=== PATIENT | male | born 1960 | race Caucasian/White ===

== ENCOUNTER → 2016-07-06 | Outpatient (CLI) | payer BC ==
[2014-08-20 14:58] VITALS: BP 110/85
[2016-07-06 06:53] LABS: BILIRUBIN,URINE NEGATIVE (NEGATIVE); BLOOD/HEMOGLOBIN,URINE NEGATIVE (NEGATIVE); GLUCOSE, URINE NEGATIVE (NEGATIVE); KETONES,URINE NEGATIVE (NEGATIVE); LEUKOCYTE ESTERASE ,URINE NEGATIVE (NEGATIVE); NITRITES,URINE NEGATIVE (NEGATIVE); PROTEIN,URINE 1+ (NEGATIVE); UROBILINOGEN,URINE NORMAL (NORMAL)
[2016-07-06 07:01] LABS: APPEARANCE,URINE CLEAR (CLEAR); BACTERIA,URINE NEGATIVE /HPF (NEGATIVE); COLOR,URINE YELLOW (YELLOW); MUCUS,URINE FEW /HPF (NEGATIVE); RBC,URINE 0-1 /HPF (NEGATIVE); SQUAMOUS EPITHELIAL CELL,UR RARE /HPF (NEGATIVE)
[2016-07-06 07:02] LABS: BASOPHILS % (AUTO) 0.9 % (0.2-1.0); EOSINOPHILS # (AUTO) 0.2 x10^3/uL (0.0-0.2); EOSINOPHILS % (AUTO) 4.9 % (0.9-2.9); HEMATOCRIT 46.3 % (42.0-54.0); HEMOGLOBIN 15.7 g/dL (13.5-18.0); HEMOGLOBIN A1C 5.5 % (4.5-6.2); LYMPHOCYTES # (AUTO) 1.9 X10^3/uL (1.3-2.9); LYMPHOCYTES % (AUTO) 43.6 % (21.0-51.0); MEAN CORPUSCULAR HEMOGLOBIN 28.8 pg (27.0-34.0); MEAN CORPUSCULAR HGB CONC 33.9 g/dL (33.0-35.0); MEAN CORPUSCULAR VOLUME 85.1 fL (80.0-100.0); MEAN PLATELET VOLUME 9.5 fL (7.4-11.0); MONOCYTES # (AUTO) 0.3 x10^3/uL (0.3-0.8); MONOCYTES % (AUTO) 6.7 % (0.0-13.0); NEUTROPHILS # (AUTO) 1.9 x10^3/uL (2.2-4.8); NEUTROPHILS % (AUTO) 43.9 % (42.0-75.0); PLATELET COUNT 178 X10^3/uL (150.0-450.0); RED BLOOD COUNT 5.44 X10^6/uL (4.7-6.0); RED CELL DISTRIBUTION WIDTH 13.6 % (11.6-16.5); WHITE BLOOD COUNT 4.4 X10^3/uL (3.6-10.0)
[2016-07-06 07:16] LABS: ALANINE AMINOTRANSFERASE 21 Units/L (12-78); ALBUMIN 3.8 g/dL (3.4-5.0); ALKALINE PHOSPHATASE 45 Units/L (46-116); ASPARTATE AMINO TRANSFERASE 13 Units/L (15-37); BLOOD UREA NITROGEN 11 mg/dL (7-18); CALCIUM 8.4 mg/dL (8.5-10.1); CARBON DIOXIDE 28.1 mmol/L (21-32); CHLORIDE 104 mmol/L (98-107); CHOL/HDL RATIO 5.3 (0.0-5.0); CHOLESTEROL 186 mg/dL (0-200); CREATININE 1.02 mg/dL (0.70-1.30); FREE T4 (FREE THYROXINE) 1.03 ng/dL (0.76-1.46); GLUCOSE 108 mg/dL (65-99); HDL CHOLESTEROL 35 mg/dL (40-60); MAGNESIUM 1.8 mg/dL (1.7-2.9); SODIUM 141 mmol/L (136-145); TRIGLYCERIDES 136 mg/dL (0-150); TSH (3RD GENERATION) 1.871 uIU/mL (0.358-3.74); eGFR BLACK RACES > 60 (>60); eGFR NON BLACK RACES > 60 (>60)
[2016-07-10 13:03] LABS: DHEA 1.46 ng/mL (0.630-4.700)
== END ==
LOC: LAB 06:22
PROVIDERS: ATTEND Internal Medicine
DX: I10 Essential (primary) hypertension (principal); Z79.899 Other long term (current) drug therapy; E29.1 Testicular hypofunction; R53.83 Other fatigue
CPT/HCPCS: 36415; 80053; 80061; 81001; 82306; 82533; 82607; 82626; 82670; 82728; 82746; 83036; 83735; 84153; 84154; 84207; 84270; 84305; 84402; 84403; 84439; 84443; 85025; 86141

== ENCOUNTER → 2016-11-08 | Outpatient (CLI) | payer BC ==
[2014-08-20 14:58] VITALS: BP 110/85
[~2016-11-08] MED LIST: DIPRIVAN VIAL ONE; KETALAR ONE; NS 1000 ML 1,000 ML ONE; VERSED ONE
--- NOTE | 2016-11-08 16:27 | MRI ---
MRI cervical without contrast Indication: Radiculopathy with numbness and tingling in upper extremities Technique: Multiplanar, the multi sequence imaging of the cervical spine without IV contrast adminis tration. Comparison: 02/27/2013. Findings: Cervical spine alignment is maintained. Previous anterior cervical fusion at C3-4. There i s no significant disk desiccation within the remaining cervical spine. No prevertebral or paraspinal soft tissue swelling. Posterior fossa demonstrates no evidence of mass or mass effect. Craniocervic al junction is normal. There is normal signal without evidence of atrophy or expansion of the cervic al cord. At C2-3 mild disc osteophyte complex and uncovertebral hypertrophy and left greater than right facet arthropathy causes mild spinal canal stenosis with mild left sided neural foraminal narrowing. At C3-4 mild disc osteophyte complex, uncovertebral hypertrophy and left greater than right facet ar thropathy causes mild spinal canal stenosis and bilateral neural foraminal narrowing. At C4-5 mild disc osteophyte complex and uncovertebral hypertrophy and left greater than right facet arthropathy causes mild spinal canal stenosis the with mild bilateral neural foraminal narrowing. At C5-6 mild uncovertebral hypertrophy causes very mild spinal canal stenosis and mild left-sided ne ural foraminal narrowing . At C6-7 disc osteophyte complex causes mild spinal canal stenosis without neural foraminal narrowing . At C7-T1 unremarkable . Impression: Multilevel discogenic degenerative change and facet arthropathy causes varying degrees o f spinal canal stenosis as described above , not significantly changed from prior examination. Reported By:
== END ==
LOC: RAD 08:26
PROVIDERS: ATTEND Internal Medicine
DX: M50.13 Cervical disc disorder with radiculopathy, cervicothoracic region (principal)
CPT/HCPCS: 72141; A4222; J2250; J3490

== ENCOUNTER → 2016-12-05 | Outpatient (CLI) | payer BC ==
[2014-08-20 14:58] VITALS: BP 110/85
--- NOTE | 2016-12-05 09:31 | RAD ---
HISTORY: Neck pain, radiculopathy Study: AP, odontoid, lateral cervical spine, flexion, extension laterals Comparison: MRI cervical spine November 08, 2016 Findings: The patient is status post C3-4 anterior interbody fusion with hardware and a disc spacer present. Fu josé appears complete. The alignment is normal. The alignment is stable in flexion and extension peer E the remainder the vertebral bodies are of average height. Disc space narrowing is present at C2-3 and C4-5. Posterior elements are intact. Diffuse bilateral facet degenerative joint disease is presen t. IMPRESSION: Postoperative changes as above Degenerative disc disease C2-3, C4-5 Facet degenerative joint disease Reported By:
--- NOTE | 2016-12-05 14:57 | CT ---
HISTORY: Cervical radiculopathy Study: CT cervical spine without contrast Comparison: August 20, 2014 Technique: Axial non contrast images with coronal and sagittal reformats. Dose reduction procedures w ere use dwith MA/kv adjusted for body size. Findings: The patient is status post C3-4 anterior interbody fusion with hardware and a disc spacer present. Th ere is some straightening of the normal cervical lordosis. The alignment is otherwise normal. The rah tebral bodies are of average height. Disc space narrowing is present at C2-3 and C4-5. The pedicles, spinous processes, and posterior elements are intact. The neural foramina are patent. Uncovertebral j oint degenerative joint disease is present at C4-5. Diffuse bilateral facet degenerative joint diseas e is present. There are no obvious disc protrusions however CT is not adequate for the evaluation of cervical disc disease. If cervical disc disease is a strong clinical consideration MRI is recommended for further evaluation. IMPRESSION: Degenerative disc disease C2-3, C5-6 Diffuse bilateral facet degenerative joint disease Reported By:
== END | disposition home or self-care (01) | DRG 74 ==
LOC: RAD 08:17
PROVIDERS: ATTEND Neurological Surgery
DX: M54.12 Radiculopathy, cervical region (principal); M47.892 Other spondylosis, cervical region; M50.31 Other cervical disc degeneration, high cervical region
CPT/HCPCS: 72050; 72125

== ENCOUNTER → 2017-05-15 | Outpatient (CLI) | payer BC ==
[2014-08-20 14:58] VITALS: BP 110/85
--- NOTE | 2017-05-15 09:52 | RAD ---
Indication: Cough. Exam: PA and lateral Comparison: 10/12/2011. Findings: The heart is normal. The pulmonary vessels are normal. No consolidation or effusion is seen . The bones are intact. Impression: Stable chest with no acute abnormality seen. Reported By:
== END ==
LOC: RAD 09:15
PROVIDERS: ATTEND Internal Medicine
DX: R06.2 Wheezing (principal)
CPT/HCPCS: 71046

== ENCOUNTER 2018-10-26 23:30 | Inpatient (IN) ==
[2018-10-27] MEDS ORDERED: BENADRYL INJ 50 MG VIAL IVP STA (00:19)
[2018-10-27] MEDS ORDERED: MORPHINE SULFATE INJ 2 MG INJ IVP ONE (00:19)
[2018-10-27] MEDS ORDERED: BENADRYL INJ 50 MG VIAL ONE (00:22)
[2018-10-27] MEDS ORDERED: MORPHINE SULFATE INJ 2 MG INJ ONE (00:23)
--- NOTE | 2018-10-27 00:33 | DR.GENAD ---
HPI - PCP Primary Care Physician: LESA - Complaint/Symptoms Chief Complaint Doctors Comments: Patient states he has been dealing with shingles for the past six days and has been taking medicines at home without improvement with severe pain and burining in his left arm, shoulder, chest and back with the patient unable to sleep. States the pain is 10 of 10. States he has taken Morphine 30mg bid; Lyrica 200mg po tid Advil and a muscle relaxer with out any relief tonight. He denies cold, cough, fever, chills, chest pain or SOB. States he has been having twinges in the left side of his chest that comes and goes. He denies tobacco or alcohol usage. States he has been using a cream and takeing Acyclovir 800mg five times daily. States be got some more cream and Calamide lotion from the pharmacy recently without out any improvement tonight. Chief Complaint:: PT STATES" I'M HURTING WITH THESE SHINGLES AGAIN DR MCFADDEN TOLD AIDE FOR ME TO COME TO ER AND GET ADMITTED IF NEEDED" - Nurses notes reviewed Nurses Notes Review: Yes - Source History Provided: Patient - Mode of Arrival Mode of Arrival: Ambulatory - Timing Onset of Chief Complaint: 10/21/18 Came on: Gradually - Duration Duration: Constant How lon Duration: Days - Location Location: left arm, chest, and left side of the back - Severity Severity: Severe - Modifying Factors Worsens:: nothing Improves:: nothing PMH - PMH Past Medical History: Yes Past Medical History: Hypertension Past Surgical History: No Surgical History: Unknown - Family History History of Family Medical Conditions: Yes Family Medical History: Hypertension - Social History Does any household member use tobacco: No Alcohol Use: None Do you use any recreational Drugs:: No Lives With: Family Lives Where: Home - infectious screening In the last 2 months have you had wt loss of >10#?: NO Have you had fever, night sweats or hemotysis?: No Have you traveled outside the country in the last 6 months?: No Isolation: Standard ROS - Review of Systems Constitutional: No Symptoms Reported Eyes: No Symptoms Reported ENTM: No Symptoms Reported Respiratoy: No Symptoms Reported Cardiovascular: No Symptoms Reported, Chest Pain Gastrointestinal/Abdominal: No Symptoms Reported. negative: See HPI, Abdominal Pain, Constipation, Diarrhea, Nausea, Vomiting, Food Intolerance, Other Genitourinary: No Symptoms Reported. negative: See HPI, Discharge, Dysuria, Frequency, Hematuria, Pain, Bleeding, Other Neurological: No Symptoms Reported, Paresthesia (left arm and back) Musculoskeletal: No Symptoms Reported, Left, Back (pain and burning), Arm Integumentary: Lesions (dried lesions left arm; left chest; left scapular area with hyperpigmented small circular area), Rash Hematologic/Lymphatic: No Symptoms Reported. negative: See HPI, Anemia, Blood Clots, Easy Bleeding, Easy Bruising, Swollen Glands, Lymphadenopathy, Other Endocrine: No Symptoms Reported Psychiatric: No Symptoms Reported PE - General Limitations: No Limitations General Appearance: Alert, In Distress (moderate) - Head Head Exam: Normal Inspection, Atraumatic, Normocephalic - Eyes Eye exam: Normal Appearance, PERRL, EOMI. negative: Scleral Icterus, Conjunctival Injection, Nystagmus, Miosis, Mydrasis, Periorbital Swelling, Periorbital Tenderness, Other - ENT ENT Exam: Normal Exam, Normal Oropharynx, Normal External Ear Exam, Mucous Membranes Moist, TM's Normal Bilaterally External Ear Exam: Normal External Inspection TM/Canal Exam: Bilateral Normal Nose Exam: Normal Nose Exam Mouth Exam: Normal Inspection. negative: Drooling, Trismus, Lip Swelling, Tongue Elevation, Tongue Swelling, Laceration, Other Throat Exam: Normal Inspection. negative: Tonsillar Erythema, Tonsillomegaly, Tonsillar Exudate, R Peritonsillar Mass, L Peritonsillar Mass, Muffled Voice, Other - Neck Neck Exam: Normal Inspection, Full ROM, Trachea Midline. negative: Tenderness, Meningismus, Lymphadenopathy, Thyromegaly, Other - Chest Chest Inspection: Normal Inspection - Respiratory Respiratory Exam: Normal Lung Sounds Bilat Respiratory Exam: Bilateral Clear to Auscultation - Cardiovascular Cardiovascular Exam: Regular Rate, Normal Rhythm, Normal Heart Sounds - Abdominal Exam Abdominal Exam: Normal Inspection, Normal Bowel Sounds, Soft. negative: Distention, Tenderness, Guarding, Rebound, Rigidity, Dimnished Bowel Sounds, Hyperactive Bowel Sounds, Hypoactive Bowel Sounds, Organomegaly, Trauma, Incision, Ascites, Mass, Bruit, Pulsatile Mass, Hernia, Other Abdominal Tenderness: negative: RUQ, RLQ, LUQ, LLQ, Epigastrium, Suprapubic, Diffuse, Mild, Moderate, Severe, Other - Extremities Extremities Exam: Normal Inspection, Full ROM, Tenderness (left arm with healing rash left upper arm inner arm; anterior chest left side; back, scapular area with healing lesion; area exudates left anterior chest with crusting noted), Normal Capillary Refill - Back Back Exam: Normal Inspection, Full ROM, Tenderness (left upper scapular area with rash), Rashes - Neurologic Neurological Exam: Alert, Oriented X3, CN II-XII Intact, Normal Gait, Reflexes Normal - Psychiatric Psychiatric Exam: Normal Affect, Normal Mood. negative: Depressed, Agitated, Anxious, Flat Affect, Manic, Homicidal Ideation, Suicidal Ideation, Other - Skin Skin Exam: Warm, Dry, Intact, Rash, Erythema (healing macular rash left arm; anteriof chest and scapular area with crusting ) - Vital Signs Vitals: Temperature 98.2 F Pulse Rate 75 Respiratory Rate 18 Blood Pressure [Left Arm] 168/106 Blood Pressure 121/89 O2 Sat by Pulse Oximetry 96 Course - Reevaluation 1st: Improved - Consultation Called: 02:23 Call Returned: 02:23 (Dr. Vasquez to admit) - Education/Counseling Education/Counseling: Patient Educated On: Treatment, Diagnosis, Prognosis, Needs for Follow Up ROR - Labs Reviewed Laboratory Results Reviewed?: Yes (All labs and x-ray results reviewed and discussed with patient) Result Diagrams: 10/27/18 00:25 10/27/18 00:25 - EKG Rate: 65 [place]: Normal Rhythm: NSR Block: None Hypertrophy: None ST: Normal - Labs Reviewed Laboratory: WBC 7.0 X10^3/uL (3.6-10.0) 10/27/18 00:25 RBC 5.97 X10^6/uL (4.7-6.0) 10/27/18 00:25 Hgb 17.4 g/dL (13.5-18.0) 10/27/18 00:25 Hct 51.9 % (42.0-54.0) 10/27/18 00:25 MCV 86.9 fL (80.0-100.0) 10/27/18 00:25 MCH 29.2 pg (27.0-34.0) 10/27/18 00:25 MCHC 33.6 g/dL (33.0-35.0) 10/27/18 00:25 RDW 13.9 % (11.6-16.5) 10/27/18 00:25 Plt Count 166 X10^3/uL (150.0-450.0) 10/27/18 00:25 MPV 9.1 fL (7.4-11.0) 10/27/18 00:25 Neut % (Auto) 64.9 % (42.0-75.0) 10/27/18 00:25 Lymph % (Auto) 24.9 % (21.0-51.0) 10/27/18 00:25 [place] % (Auto) 6.0 % (0.0-13.0) 10/27/18 00:25 Eos % (Auto) 3.1 % (0.9-2.9) H 10/27/18 00:25 Baso % (Auto) 1.1 % (0.2-1.0) H 10/27/18 00:25 Neut # (Auto) 4.5 x10^3/uL (2.2-4.8) 10/27/18 00:25 Lymph # (Auto) 1.7 X10^3/uL (1.3-2.9) 10/27/18 00:25 [place] # (Auto) 0.4 x10^3/uL (0.3-0.8) 10/27/18 00:25 Eos # (Auto) 0.2 x10^3/uL (0.0-0.2) 10/27/18 00:25 Baso # (Auto) 0.1 X10^3/uL (0.0-0.1) 10/27/18 00:25 Absolute Nucleated RBC 0.4 /100WBC 10/27/18 00:25 INR Target Range - 10/27/18 00:25 INR 1.00 (0.8-1.3) 10/27/18 00:25 APTT 29.2 SECONDS (22.9-36.5) 10/27/18 00:25 PTT Comment - 10/27/18 00:25 Sodium 137 mmol/L (136-145) 10/27/18 00:25 Corrected Sodium 137 mmol/L (136-145) 10/27/18 00:25 Potassium 4.2 mmol/L (3.5-5.1) 10/27/18 00:25 Chloride 101 mmol/L (98-107) 10/27/18 00:25 Carbon Dioxide 28.3 mmol/L (21-32) 10/27/18 00:25 BUN 22 mg/dL (7-18) H 10/27/18 00:25 Creatinine 1.20 mg/dL (0.70-1.30) 10/27/18 00:25 Est GFR (MDRD) Af Amer > 60 (>60) 10/27/18 00:25 Est GFR (MDRD) Non-Af > 60 (>60) 10/27/18 00:25 Glucose 115 mg/dL (65-99) H 10/27/18 00:25 Calcium 8.5 mg/dL (8.5-10.1) 10/27/18 00:25 Corrected Calcium TNP 10/27/18 00:25 Magnesium 2.0 mg/dL (1.7-2.9) 10/27/18 00:25 Total Bilirubin 0.40 mg/dL (0.2-1.0) 10/27/18 00:25 AST 13 Units/L (15-37) L 10/27/18 00:25 ALT 17 Units/L (12-78) 10/27/18 00:25 Alkaline Phosphatase 48 Units/L (46-116) 10/27/18 00:25 Creatine Kinase 49 Units/L (39-308) 10/27/18 00:25 CK-MB (CK-2) < 1.0 ng/mL (0-4.0) 10/27/18 00:25 CK/CKMB % Calc 2.0 % (<4) 10/27/18 00:25 Troponin I < 0.02 ng/mL (0-1.5) 10/27/18 00:25 Total Protein 7.6 g/dL (6.4-8.2) 10/27/18 00:25 Albumin 3.8 g/dL (3.4-5.0) 10/27/18 00:25 Globulin 3.8 g/dL (2.5-4.5) 10/27/18 00:25 Albumin/Globulin Ratio 1.0 Ratio (1.1-2.1) L 10/27/18 00:25 Opioid - Opioid Risk Tool Total: 0 Total Score Risk Category: Low Risk - Diagnosis Discharge Problem: Intractable pain, Acute pain associated with herpes zoster, Herpes zoster dermatitis Chest pain Qualifiers: Chest pain type: unspecified Qualified Code(s): R07.9 - Chest pain, unspecified - Discharge Plan Disposition: ADMITTED INPATIENT Condition: Stable - Follow ups/Referrals Follow ups/Referrals: Hector Mcfadden [Primary Care Provider] - 3 days - Instructions
[2018-10-27] MEDS: NS 1000 ML 1,000 ML IV SCH ×4 (00:39→17:06)
[2018-10-27 00:40] LABS: BASOPHILS # (AUTO) 0.1 X10^3/uL (0.0-0.1); BASOPHILS % (AUTO) 1.1 % (0.2-1.0); EOSINOPHILS # (AUTO) 0.2 x10^3/uL (0.0-0.2); EOSINOPHILS % (AUTO) 3.1 % (0.9-2.9); HEMATOCRIT 51.9 % (42.0-54.0); HEMOGLOBIN 17.4 g/dL (13.5-18.0); LYMPHOCYTES # (AUTO) 1.7 X10^3/uL (1.3-2.9); LYMPHOCYTES % (AUTO) 24.9 % (21.0-51.0); MEAN CORPUSCULAR HEMOGLOBIN 29.2 pg (27.0-34.0); MEAN CORPUSCULAR HGB CONC 33.6 g/dL (33.0-35.0); MEAN CORPUSCULAR VOLUME 86.9 fL (80.0-100.0); MEAN PLATELET VOLUME 9.1 fL (7.4-11.0); MONOCYTES # (AUTO) 0.4 x10^3/uL (0.3-0.8); NEUTROPHILS # (AUTO) 4.5 x10^3/uL (2.2-4.8); NEUTROPHILS % (AUTO) 64.9 % (42.0-75.0); PLATELET COUNT 166 X10^3/uL (150.0-450.0); RED BLOOD COUNT 5.97 X10^6/uL (4.7-6.0); RED CELL DISTRIBUTION WIDTH 13.9 % (11.6-16.5)
[2018-10-27 00:50] LABS: ALANINE AMINOTRANSFERASE 17 Units/L (12-78); ALBUMIN 3.8 g/dL (3.4-5.0); ALKALINE PHOSPHATASE 48 Units/L (46-116); ASPARTATE AMINO TRANSFERASE 13 Units/L (15-37); BLOOD UREA NITROGEN 22 mg/dL (7-18); CALCIUM 8.5 mg/dL (8.5-10.1); CARBON DIOXIDE 28.3 mmol/L (21-32); CHLORIDE 101 mmol/L (98-107); COR NA(FOR HYPERGLY) 137 mmol/L (136-145); SODIUM 137 mmol/L (136-145); TOTAL PROTEIN 7.6 g/dL (6.4-8.2); eGFR NON BLACK RACES > 60 (>60)
[2018-10-27 01:24] LABS: CREATINE KINASE 49 Units/L (39-308); CREATINE KINASE MB < 1.0 ng/mL (0-4.0); TROPONIN I < 0.02 ng/mL (0-1.5)
[2018-10-27] MEDS ORDERED: MORPHINE SULFATE INJ 4 MG IVP ONE (01:29)
[2018-10-27] MEDS ORDERED: MORPHINE SULFATE INJ 4 MG ONE ×3 (01:32→21:00)
[2018-10-27] MEDS ORDERED: ATIVAN INJ 2 MG VIAL ONE (02:20)
[2018-10-27] MEDS ORDERED: ATIVAN INJ 2 MG VIAL IVP STA (02:20)
[2018-10-27] MEDS ORDERED: MORPHINE SULFATE INJ 4 MG IVP PRN ×3 (02:28→15:22)
[2018-10-27] MEDS ORDERED: ZOFRAN INJ 4 MG VIAL IVP PRN (02:30)
[2018-10-27] MEDS ORDERED: M.S. CONTIN 30 MG EXTENDED RELEASE PO SCH ×2 (03:00→09:00)
[2018-10-27] MEDS: PEPCID 20 MG IV PREMIX* 20 MG/50 ML BAG IV SCH ×2 (04:19→08:50)
--- NOTE | 2018-10-27 05:48 | RAD ---
Chest AP only one view Clinical indication: Chest pain Findings: Study is compared to 05/15/2017 and 05/28/2018. The heart size remains stable and is upper limits of normal caliber for technique. There are no infiltrates. The pleural spaces are clear. There is no free air or pneumothorax. No acute bony abnormalities of the chest are observed. Impression: No acute radiographic abnormalities of the chest. Reported By:
[2018-10-27] MEDS: LYRICA CAP 150 MG PO SCH ×2 (06:39→13:09)
[2018-10-27] MEDS: ZOVIRAX PO SCH ×3 (08:51→17:05)
[2018-10-27] MEDS ORDERED: COREG TAB 6.25 MG PO SCH (09:00)
[2018-10-27 10:50] VITALS: BMI 37.0
[2018-10-27] MEDS ORDERED: TORADOL 30 MG VIAL IVP PRN (12:29)
[2018-10-27] MEDS ORDERED: XYLOCAINE OINT 5% TOP PRN (12:30)
[2018-10-27] MEDS ORDERED: XYLOCAINE JELLY ONE (13:41)
[2018-10-27] MEDS ORDERED: TORADOL 30 MG VIAL IVP SCH (13:53)
[2018-10-27] MEDS ORDERED: DERMOPLAST SPRAY ONE (14:27)
[2018-10-27] MEDS: DERMOPLAST SPRAY TOP SCH ×2 (15:26→17:05)
[2018-10-27] MEDS ORDERED: COLACE CAP 100 MG PO PRN (16:12)
[2018-10-27] MEDS ORDERED: MILK OF MAGNESIA PO PRN (16:12)
[2018-10-27 16:19] VITALS: BP 158/96
[2018-10-27] MEDS ORDERED: PATIENT'S HOME MEDICATION PO SCH (17:00)
[2018-10-27] MEDS ORDERED: TORADOL 30 MG VIAL ONE (21:00)
[2018-10-27] MEDS ORDERED: LYRICA CAP 150 MG ONE (21:00)
[2018-10-27] MEDS ORDERED: DILAUDID INJ ONE (21:00)
[2018-10-27] MEDS ORDERED: M.S. CONTIN 30 MG EXTENDED RELEASE ONE (21:00)
[2018-10-27] MEDS ORDERED: NS 1000 ML ONE (21:00)
[2018-10-27] MEDS ORDERED: LEVSIN/MAALOX/LIDOC VISC ONE (21:00)
[2018-10-27] MEDS ORDERED: ZOVIRAX ONE (21:00)
[2018-10-27] MEDS ORDERED: COREG TAB 6.25 MG ONE (21:00)
[2018-10-27] MEDS ORDERED: PEPCID 20 MG IV PREMIX ONE (21:00)
[2018-10-28] MEDS ORDERED: TORADOL 30 MG VIAL IVP ONE (02:00)
[2018-10-28] MEDS ORDERED: ZOVIRAX PO ONE ×2 (05:05→08:48)
[2018-10-28] MEDS ORDERED: MORPHINE SULFATE INJ 4 MG IVP ONE ×2 (05:05→07:38)
[2018-10-28] MEDS ORDERED: LYRICA CAP 150 MG PO ONE ×3 (05:05→20:21)
[2018-10-28] MEDS ORDERED: LEVSIN/MAALOX/LIDOC VISC PO ONE ×2 (08:48→20:02)
[2018-10-28] MEDS ORDERED: PEPCID 20 MG IV PREMIX IV ONE ×2 (08:48→20:21)
[2018-10-28] MEDS ORDERED: COREG TAB 6.25 MG PO ONE ×2 (08:48→20:21)
[2018-10-28] MEDS ORDERED: M.S. CONTIN 30 MG EXTENDED RELEASE PO ONE ×2 (09:03→20:21)
[2018-10-28] MEDS ORDERED: DILAUDID INJ IVP ONE ×2 (10:00→14:10)
[2018-10-28] MEDS ORDERED: PROTONIX INJ 40 MG VIAL IVP ONE (10:00)
[2018-10-28] MEDS ORDERED: MAALOX or MYLANTA PO ONE (10:00)
[2018-10-28] MEDS ORDERED: NS 250 ML IV IV ONE ×2 (13:20→20:21)
[2018-10-28] MEDS ORDERED: ZOVIRAX IV ONE ×2 (13:20→20:21)
[2018-10-28] MEDS ORDERED: MORPHINE SULFATE PCA 30 MG IVP ONE (14:10)
[2018-10-28] MEDS ORDERED: NS 1000 ML IV ONE (18:02)
[2018-10-28] MEDS ORDERED: ATIVAN INJ 2 MG VIAL IVP ONE (22:50)
[2018-10-29] MEDS ORDERED: LYRICA CAP 150 MG PO ONE ×2 (06:00→21:00)
[2018-10-29] MEDS ORDERED: ZOVIRAX IV ONE ×3 (06:00→22:00)
[2018-10-29] MEDS ORDERED: TORADOL 15 MG VIAL IVP ONE ×3 (07:48→22:37)
[2018-10-29] MEDS ORDERED: VISTARIL PO ONE ×2 (07:48→21:30)
[2018-10-29] MEDS ORDERED: PROTONIX INJ 40 MG VIAL IVP ONE (09:00)
[2018-10-29] MEDS ORDERED: COREG TAB 6.25 MG PO ONE (09:00)
[2018-10-29] MEDS ORDERED: PEPCID 20 MG IV PREMIX IV ONE ×2 (09:00→21:00)
[2018-10-29] MEDS ORDERED: DERMOPLAST SPRAY TOP ONE (09:30)
[2018-10-29] MEDS ORDERED: MILK OF MAGNESIA PO ONE ×3 (13:00→21:00)
[2018-10-29] MEDS ORDERED: M.S. CONTIN 30 MG EXTENDED RELEASE PO ONE ×2 (13:00→21:00)
[2018-10-29] MEDS ORDERED: COLACE CAP 100 MG PO ONE ×2 (13:00→21:00)
[2018-10-29] MEDS ORDERED: M.S. CONTIN 15 MG (EXTENDED RELEASE) PO ONE ×2 (13:00→21:00)
[2018-10-29] MEDS ORDERED: MIRALAX POWDER (1 DOSE 17 G) PO ONE (13:00)
[2018-10-29] MEDS ORDERED: XYLOCAINE OINT 5% TOP ONE (14:00)
[2018-10-29] MEDS ORDERED: NS 1000 ML IV ONE (14:45)
[2018-10-29] MEDS ORDERED: ZANAFLEX PO ONE ×2 (15:20→21:30)
[2018-10-29] MEDS ORDERED: LEVSIN/MAALOX/LIDOC VISC PO ONE (21:30)
[2018-10-30] MEDS ORDERED: NS 250 ML IV IV ONE (06:00)
[2018-10-30] MEDS ORDERED: NS 1000 ML 1,000 ML IV ONE (06:00)
[2018-10-30] MEDS ORDERED: ZOVIRAX IV ONE (06:00)
[2018-10-30] MEDS ORDERED: ZANAFLEX PO ONE (06:00)
[2018-10-30] MEDS ORDERED: DERMOPLAST SPRAY TOP ONE (09:00)
[2018-10-30] MEDS ORDERED: PEPCID 20 MG IV PREMIX IV ONE (09:00)
[2018-10-30] MEDS ORDERED: COREG TAB 6.25 MG PO ONE (09:00)
[2018-10-30] MEDS ORDERED: PROTONIX INJ 40 MG VIAL IVP ONE (09:00)
[2018-10-30] MEDS ORDERED: LYRICA CAP 150 MG PO ONE (09:00)
[2018-10-30] MEDS ORDERED: COLACE CAP 100 MG PO ONE (09:20)
[2018-10-30] MEDS ORDERED: MILK OF MAGNESIA PO ONE (09:20)
[2018-10-30] MEDS ORDERED: MIRALAX POWDER (1 DOSE 17 G) PO ONE (09:20)
[2018-10-30] MEDS ORDERED: M.S. CONTIN 15 MG (EXTENDED RELEASE) PO ONE (09:20)
[2018-10-30] MEDS ORDERED: TORADOL 15 MG VIAL IM ONE (11:20)
[2018-11-04 09:14] LABS: ALANINE AMINOTRANSFERASE 17 Units/L (12-78); ALBUMIN 3.6 g/dL (3.4-5.0); ALKALINE PHOSPHATASE 43 Units/L (46-116); ASPARTATE AMINO TRANSFERASE 13 Units/L (15-37); BLOOD UREA NITROGEN 23 mg/dL (7-18); CALCIUM 7.9 mg/dL (8.5-10.1); CHLORIDE 103 mmol/L (98-107); CREATININE 0.88 mg/dL (0.70-1.30); SODIUM 138 mmol/L (136-145); eGFR NON BLACK RACES > 60 (>60)
[2018-11-04 09:15] LABS: HEMATOCRIT 48.8 % (42.0-54.0); HEMOGLOBIN 16.4 g/dL (13.5-18.0); MEAN CORPUSCULAR HEMOGLOBIN 29.3 pg (27.0-34.0); MEAN CORPUSCULAR HGB CONC 33.7 g/dL (33.0-35.0); PLATELET COUNT 155 X10^3/uL (150.0-450.0); RED BLOOD COUNT 5.61 X10^6/uL (4.7-6.0); RED CELL DISTRIBUTION WIDTH 14.2 % (11.6-16.5); WHITE BLOOD COUNT 5.5 X10^3/uL (3.6-10.0)
[2018-11-04 09:16] LABS: BASOPHILS # (AUTO) 0.1 X10^3/uL (0.0-0.1); BASOPHILS % (AUTO) 1.5 % (0.2-1.0); EOSINOPHILS # (AUTO) 0.3 x10^3/uL (0.0-0.2); LYMPHOCYTES # (AUTO) 2.3 X10^3/uL (1.3-2.9); LYMPHOCYTES % (AUTO) 42.4 % (21.0-51.0); MEAN PLATELET VOLUME 9.8 fL (7.4-11.0); MONOCYTES # (AUTO) 0.4 x10^3/uL (0.3-0.8); NEUTROPHILS # (AUTO) 2.4 x10^3/uL (2.2-4.8); NEUTROPHILS % (AUTO) 43.1 % (42.0-75.0)
[2018-11-04 09:17] LABS: CKMB % 1.4 % (<4); CREATINE KINASE 73 Units/L (39-308); TROPONIN I < 0.02 ng/mL (0-1.5)
[2018-11-04 15:04] LABS: BLOOD UREA NITROGEN 20 mg/dL (7-18); CARBON DIOXIDE 30.5 mmol/L (21-32); CHLORIDE 102 mmol/L (98-107); CREATININE 0.91 mg/dL (0.70-1.30); SODIUM 139 mmol/L (136-145); eGFR NON BLACK RACES > 60 (>60)
[2018-11-04 15:05] LABS: ALANINE AMINOTRANSFERASE 16 Units/L (12-78); ALBUMIN 3.5 g/dL (3.4-5.0); ALKALINE PHOSPHATASE 42 Units/L (46-116); ASPARTATE AMINO TRANSFERASE 16 Units/L (15-37); CALCIUM 8.1 mg/dL (8.5-10.1); TOTAL PROTEIN 6.8 g/dL (6.4-8.2)
[2018-11-04 15:06] LABS: HEMATOCRIT 48.1 % (42.0-54.0); HEMOGLOBIN 15.9 g/dL (13.5-18.0); MEAN CORPUSCULAR VOLUME 87.8 fL (80.0-100.0); RED BLOOD COUNT 5.48 X10^6/uL (4.7-6.0); RED CELL DISTRIBUTION WIDTH 14.1 % (11.6-16.5); WHITE BLOOD COUNT 6.6 X10^3/uL (3.6-10.0)
[2018-11-04 15:07] LABS: BASOPHILS # (AUTO) 0.2 X10^3/uL (0.0-0.1); BASOPHILS % (AUTO) 2.7 % (0.2-1.0); EOSINOPHILS # (AUTO) 0.3 x10^3/uL (0.0-0.2); EOSINOPHILS % (AUTO) 4.1 % (0.9-2.9); LYMPHOCYTES # (AUTO) 2.3 X10^3/uL (1.3-2.9); LYMPHOCYTES % (AUTO) 35.4 % (21.0-51.0); MEAN PLATELET VOLUME 9.6 fL (7.4-11.0); MONOCYTES # (AUTO) 0.5 x10^3/uL (0.3-0.8); MONOCYTES % (AUTO) 7.8 % (0.0-13.0); NEUTROPHILS # (AUTO) 3.3 x10^3/uL (2.2-4.8); PLATELET COUNT 151 X10^3/uL (150.0-450.0)
[2018-11-05 09:11] LABS: SODIUM 139 mmol/L (136-145)
[2018-11-05 09:12] LABS: ALANINE AMINOTRANSFERASE 16 Units/L (12-78); ALBUMIN 3.6 g/dL (3.4-5.0); ALKALINE PHOSPHATASE 45 Units/L (46-116); ASPARTATE AMINO TRANSFERASE 14 Units/L (15-37); BLOOD UREA NITROGEN 16 mg/dL (7-18); CARBON DIOXIDE 32.5 mmol/L (21-32); CHLORIDE 103 mmol/L (98-107); CREATININE 1.01 mg/dL (0.70-1.30); eGFR NON BLACK RACES > 60 (>60)
[2018-11-05 09:13] LABS: HEMATOCRIT 47.9 % (42.0-54.0); MEAN CORPUSCULAR VOLUME 86.9 fL (80.0-100.0); RED BLOOD COUNT 5.51 X10^6/uL (4.7-6.0); WHITE BLOOD COUNT 5.2 X10^3/uL (3.6-10.0)
[2018-11-05 09:14] LABS: BASOPHILS # (AUTO) 0.1 X10^3/uL (0.0-0.1); BASOPHILS % (AUTO) 2.6 % (0.2-1.0); EOSINOPHILS # (AUTO) 0.2 x10^3/uL (0.0-0.2); EOSINOPHILS % (AUTO) 3.6 % (0.9-2.9); LYMPHOCYTES % (AUTO) 39.5 % (21.0-51.0); MEAN CORPUSCULAR HGB CONC 33.4 g/dL (33.0-35.0); MEAN PLATELET VOLUME 9.4 fL (7.4-11.0); MONOCYTES # (AUTO) 0.4 x10^3/uL (0.3-0.8); MONOCYTES % (AUTO) 7.5 % (0.0-13.0); NEUTROPHILS # (AUTO) 2.4 x10^3/uL (2.2-4.8); NEUTROPHILS % (AUTO) 46.8 % (42.0-75.0); PLATELET COUNT 161 X10^3/uL (150.0-450.0); RED CELL DISTRIBUTION WIDTH 14.1 % (11.6-16.5)
== END 2018-10-30 11:55 | disposition home or self-care (01) | DRG 866 ==
LOC: ER 23:32 → MED/SURG 23:32 → UNDODISOB 10-30 11:55
PROVIDERS: ADMIT Internal Medicine; ATTEND Internal Medicine
DX: R07.89 Other chest pain; M54.89 Other dorsalgia; M79.602 Pain in left arm; B02.8 Zoster with other complications
CPT/HCPCS: 36415; 71010; 71045; 80053; 82550; 82553; 83735; 84484; 85025; 85610; 85730; 93005; 96365; 96367; 96374; 96375; 99284; A4216; A4222; C9113; Q0177; S0028; G0378; J0133; J1170; J1200; J1885; J2060; J2270; J2271; J7030; J7050